=== PATIENT | male | born 1980 | race Native Hawaiian/Other Pacific Islander ===

== ENCOUNTER 2022-12-13 08:17 | Emergency (ER) | payer OTHER ==
[~2022-12-13] VITALS: Ht 180.3 cm; Wt 81.6 kg
[2022-12-13 08:22] VITALS: TEMP 98.9
[2022-12-13 08:49] LABS: PLATELET COUNT 175 K/uL (142-355)
[2022-12-13 08:59] LABS: POTASSIUM 4.5 mmol/L (3.6-5.2)
[2022-12-13 10:40] VITALS: BP 119/73
== END 2022-12-13 10:40 | disposition home or self-care (01) ==
LOC: ED 08:17
PROVIDERS: Emergency Medicine
DX: S30.0XXA Contusion of lower back and pelvis, initial encounter (principal); S30.810A Abrasion of lower back and pelvis, initial encounter; S70.311A Abrasion, right thigh, initial encounter; V86.59XA Driver of other special all-terrain or other off-road motor vehicle injured in nontraffic accident, initial encounter; Y92.89 Other specified places as the place of occurrence of the external cause
CPT/HCPCS: 80053; 81002; 82550; 85027; 96360; 96372; 99284; J1885; J2360